=== PATIENT | male | born 1970 | race Caucasian/White ===

== ENCOUNTER 2024-02-02 11:17 | Emergency (ER) | payer BC, SELFPAY ==
[2024-02-02 11:22] VITALS: BP 133/95
[2024-02-02 12:02] VITALS: BMI 27.8
[2024-02-02] MEDS: KEFLEX 500 MG PO (13:00)
--- NOTE | 2024-02-02 14:08 | ED.GENMED ---
History of Present Illness
General
Chief Complaint: Skin Surface Trauma
Source: patient and spouse
Exam Limitations: none
Time Seen by Provider: 02/02/24 12:05
Nursing documentation reviewed up to this point in time: agreed with
History of Present Illness
History of Present Illness:
54-year-old male with Miguel history of hypertension hyperlipidemia presenting to the emergency department with concerns of a laceration to his left pinky finger occurring from his lawnmower prior to arrival. Denies any numbness weakness or
additional concerns. Unsure of last tetanus shot.
Review of Systems
Review of Systems
Allergies reviewed?: Yes
All Other Systems: ROS reviewed and negative except as documented in HPI and ROS
Phy Exam
Physical Exam
Physical Exam:
GENERAL: Alert , in no apparent distress
EYE: pupils equal and reactive
NECK: Supple, no significant adenopathy.
ENT: o/p clr, mmm.
CARDIAC: Regular rate and rhythm .
LUNGS: Clear breath sounds bilaterally, no acute respiratory distress, no wheezes/rales/rhonchi
ABDOMEN: Soft, without focal tenderness, no r/g, no cvat
NEUROLOGICAL: Alert and oriented, no focal neuro deficits
SKIN: Appearance on the ulnar aspect distally 2.5 cm in total length. Does not cross the joint. Warm and dry, skin intact.
MUSCULOSKELETAL: No edema, well perfused.
PSYCH: Normal and appropriate interaction.
Laceration to left pinky finger semicircular in
Course
Orders/Labs/Results
Orders:
Orders
02/02/24 12:39
Cephalexin Monohydrate [Keflex] 500 mg PO NOW STA
CR Hand - Left 2 Views Urgent
Comment:
Reason For Exam: pinky laceration
Vital Signs
Initial and Last Documented VS:
Initial Vital Signs
Temp Pulse Resp BP Pulse Ox
98.6 F 69 18 133/95 98
02/02/24 11:22 02/02/24 11:22 02/02/24 11:22 02/02/24 11:22 02/02/24 11:22
Last Documented Vital Signs
Temp Pulse Resp BP Pulse Ox
98.6 F 69 18 133/95 98
02/02/24 11:22 02/02/24 11:22 02/02/24 11:22 02/02/24 11:22 02/02/24 11:22
Procedures
Laceration Closure
Left Distal Ulnar Finger:
Status of Wound: clean
Size of Wound in cm: 2.5
Description of Wound Edges: sharp
Preparation: cleaned with saline
Anesthesia: Digital-Regional (Bupivacaine 3 mL)
Revision/Debridement: routine- no revision and irrigate-direct pressure
Wound exploration: explored to base- no FB and no tendon involvement
Type of Closure: single layer closure and interrupted sutures
Skin Closure Material: 4-0 nylon
Number of sutures: 6
MDM/Problems Addressed
MDM/Problems Addressed:
54-year-old male presenting to the emergency department today with concerns of a laceration to his left pinky finger. He was started on Keflex due to concerns of infection considering the blade was dirty. Also given an updated tetanus shot. This
was cleaned thoroughly and closed with 6 stitches. Advised to keep the area clean covered and follow-up in 12 to 14 days for suture removal.
*Critical Care Note
Total Time (30-74mins, 75-104mins- exclusive of procedures): Not Applicable
ED Attending Note
-
Portions of this chart may have been created with voice recognition software.� Occasional wrong word or��sound alike� substitutions may have occurred due to the inherent limitations of voice recognition software.
Discharge Plan
Departure
Patient Disposition: Home (Routine Discharge)
Date of Disposition: 02/02/24
Time of Disposition: 14:11
Patient with high blood pressure during this ER visit?: No
Condition: Good
Covid-19: Not Applicable
Discharge Problem:
Finger laceration
Instructions: Laceration Repair With Stitches (DC)
Prescriptions:
New
cephalexin 500 mg capsule
500 mg PO TID 3 Days Qty: 9 0RF
Referrals:
Jeff Mcfarland MD [Family Provider] -
Activity Restrictions/Additional Instructions:
You came emergency department today for concerns of finger laceration. This was closed with 6 total stitches. Please keep the area clean covered and have these removed in 12 to 14 days. Return to the emergency department for any worsening, new or
concerning symptoms.
Interventions
Interventions:
*Risk Screen - Suicide Last Done: 02/02/24 12:02
*General Assessment Last Done: 02/02/24 12:02
*Neglect/Abuse Screening Last Done: 02/02/24 12:02
*ED COVID-19 Vaccine History Last Done: 02/02/24 11:22
ED-Skin Assessment Last Done: 02/02/24 12:02
Discharge Date and Time
Print Language: SWEDISH
[2024-02-02] MEDS: ADACEL 0.5 ML IM (14:18)
[2024-02-02 14:24] VITALS: BP 120/77
== END 2024-02-02 14:26 | disposition home or self-care (01) ==
LOC: EMR 11:17
PROVIDERS: EMERGENCY PHYSICIAN Emergency Medicine; FAMILY PHYSICIAN Family Medicine
DX: S61.217A Laceration without foreign body of left little finger without damage to nail, initial encounter (principal); W28.XXXA Contact with powered lawn mower, initial encounter; I10 Essential (primary) hypertension; E78.5 Hyperlipidemia, unspecified; Z23 Encounter for immunization
CPT/HCPCS: 99283; 12001; 90471; 73120; 90715

== ENCOUNTER → 2025-07-06 18:31 | Outpatient (REF) | payer BC, SELFPAY | LOC: MRI 3T 18:31 | PROVIDERS: ATTENDING PHYSICIAN Urology; FAMILY PHYSICIAN Family Medicine | DX: R97.20 Elevated prostate specific antigen [PSA] (principal) | CPT/HCPCS: 72197; A9575 ==